=== PATIENT | male | born 1975 | race Caucasian/White ===

== ENCOUNTER 2021-06-16 18:22 | Inpatient (IN) | payer OTHER ==
[2021-06-16 21:15] VITALS: BMI 28.5
[2021-06-16] MEDS ORDERED: hydrOXYzine PAMOATE 25 MG CAPSULE (FP) PO PRN (21:35)
[2021-06-16] MEDS ORDERED: BISMUTH SUBSALICYLATE 524 MG/30 ML PO PRN (21:35)
[2021-06-16] MEDS ORDERED: MAGNESIUM HYDROX 2400MG/30ML ORAL SUSPENSION 30 ML CUP PO PRN (21:35)
[2021-06-16] MEDS ORDERED: LOPERAMIDE HCL 2 MG CAPSULE PO PRN (21:35)
[2021-06-16] MEDS ORDERED: ACETAMINOPHEN 325 MG TABLET (FP) PO PRN ×2 (21:35)
[2021-06-16] MEDS ORDERED: IBUPROFEN 400 MG TABLET (FP) PO PRN (21:35)
[2021-06-16] MEDS ORDERED: MELATONIN 5 MG TABLETS PO PRN (21:35)
[2021-06-16] MEDS ORDERED: MENTHOL/PHENOL 1 EACH UD MM PRN (21:35)
[2021-06-16] MEDS ORDERED: MAGNESIUM CITRATE 300 ML BOTTLE PO PRN (21:35)
[2021-06-16] MEDS ORDERED: METHOCARBAMOL 500 MG TABLET PO PRN (21:35)
[2021-06-16] MEDS ORDERED: MAG HYDROX/AL HYDROX/SIMETH 30 ML UNIT-DOSE CUP PO PRN (21:35)
[2021-06-16] MEDS ORDERED: ONDANSETRON *ODT* 4 MG TABLET SL PRN (21:35)
[2021-06-17] MEDS: THIAMINE HCL 100 MG TABLET (FP) PO SCH ×2 (02:10→22:18)
[2021-06-17] MEDS: PRENATAL VITAMINS W/ FOLIC ACID TABLET (FP) PO SCH (10:16)
[2021-06-17] MEDS: NICOTINE POLACRILEX 2 MG GUM BUC PRN ×2 (10:42→14:21)
[2021-06-17 10:54] LABS: HEMATOCRIT 37.2 % (35.4-49); HEMOGLOBIN 12.5 GM/dL (11.7-16.9); MCH 29.4 pg (25.7-33.7); MCHC 33.6 g/dl (32.0-35.9); MEAN CELL VOLUME 87.6 fl (80-96); MEAN PLT VOLUME 9.8 fl (7.5-11.1); PLATELET COUNT 155 10^3/uL (134-434); RBC 4.25 M/mm3 (4.00-5.60); RDW 12.5 % (11.9-15.9); WHITE BLOOD COUNT 3.1 K/mm3 (4.0-10.0)
[2021-06-17] MEDS ORDERED: methaDONE HCL 10 MG TABLET PO ONE (13:17)
[2021-06-17] MEDS ORDERED: methaDONE HCL 10 MG TABLET ONE (14:13)
[2021-06-17] MEDS ORDERED: methaDONE HCL 40 MG DISPERSABLE TABLET ONE (14:14)
[2021-06-17 14:29] LABS: ALBUMIN 3.4 g/dl (3.4-5.0); BILIRUBIN,TOTAL 0.3 mg/dL (0.2-1); BLOOD UREA NITROGEN 14.4 mg/dL (7-18); CALCIUM 8.9 mg/dL (8.5-10.1); TOT PROT 6.3 g/dl (6.4-8.2)
[2021-06-17] MEDS ORDERED: NICOTINE 10 MG CARTRIDGE (INHALER) IH PRN (14:53)
[2021-06-18] MEDS ORDERED: methaDONE HCL 10 MG TABLET ONE (04:05)
[2021-06-18] MEDS ORDERED: methaDONE HCL 40 MG DISPERSABLE TABLET ONE (04:05)
[2021-06-18] MEDS ORDERED: methaDONE HCL 10 MG TABLET PO SCH (06:00)
[2021-06-18] MEDS: NICOTINE POLACRILEX 2 MG GUM BUC PRN ×2 (06:32→10:12)
[2021-06-18 09:28] VITALS: BP 138/80; PULSE 76; TEMP 97.7
[2021-06-18] MEDS: PRENATAL VITAMINS W/ FOLIC ACID TABLET (FP) PO SCH (10:12)
== END 2021-06-18 15:06 | disposition other institution (70) | DRG 773 ==
LOC: YASAS 18:22 → Y6N 06-17 02:38 → UNDOADMIN 06-17 02:38
PROVIDERS: ADMIT Allergy & Immunology; ATTEND Allergy & Immunology
PROC: HZ2ZZZZ Detoxification Services for Substance Abuse Treatment (ICD-10-PCS; principal; 2021-06-17)
DX: F10.230 Alcohol dependence with withdrawal, uncomplicated (principal); F13.230 Sedative, hypnotic or anxiolytic dependence with withdrawal, uncomplicated; F11.20 Opioid dependence, uncomplicated; F14.20 Cocaine dependence, uncomplicated; F12.20 Cannabis dependence, uncomplicated; F17.210 Nicotine dependence, cigarettes, uncomplicated
CPT/HCPCS: 36415; 71046-TC-FY; 80053; 85027; 86780; C9803; U0003; U0005

== ENCOUNTER 2021-06-18 15:17 | Inpatient (IN) | payer OTHER ==
[~2021-06-18 15:17] MED LIST: LOPERAMIDE HCL 2 MG CAPSULE PO PRN; MAG HYDROX/AL HYDROX/SIMETH 30 ML UNIT-DOSE CUP PO PRN; MAGNESIUM CITRATE 300 ML BOTTLE PO PRN; P-EPHED 60MG/TRIPROLIDI 2.5MG TABLET PO PRN; guaiFENesin 200 MG/10 ML 10 ML UNIT-DOSE CUPS PO PRN
[2021-06-18] MEDS: THIAMINE HCL 100 MG TABLET (FP) PO SCH (21:05)
[2021-06-18] MEDS: MELATONIN 5 MG TABLETS PO SCH (21:05)
[2021-06-18] MEDS: NICOTINE 10 MG CARTRIDGE (INHALER) IH PRN (21:36)
[2021-06-19] MEDS ORDERED: methaDONE HCL 40 MG DISPERSABLE TABLET ONE (04:06)
[2021-06-19] MEDS ORDERED: methaDONE HCL 10 MG TABLET ONE (04:06)
[2021-06-19] MEDS ORDERED: methaDONE HCL 10 MG TABLET PO SCH (06:00)
[2021-06-19] MEDS: NICOTINE 10 MG CARTRIDGE (INHALER) IH PRN ×2 (06:26→21:04)
[2021-06-19] MEDS: PRENATAL VITAMINS W/ FOLIC ACID TABLET (FP) PO SCH (10:01)
[2021-06-19 10:31] LABS: BASO % 0.2 % (0-2.0); EOS % 3.7 % (0-4.5); HEMATOCRIT 37.7 % (35.4-49); HEMOGLOBIN 12.6 GM/dL (11.7-16.9); MCH 29.3 pg (25.7-33.7); MCHC 33.4 g/dl (32.0-35.9); MEAN CELL VOLUME 87.8 fl (80-96); MEAN PLT VOLUME 9.6 fl (7.5-11.1); MONO % 11.7 % (3.8-10.2); NEUT % 58.4 % (42.8-82.8); PLATELET COUNT 135 10^3/uL (134-434); RBC 4.29 M/mm3 (4.00-5.60); RDW 12.3 % (11.9-15.9)
[2021-06-19] MEDS: hydrOXYzine PAMOATE 25 MG CAPSULE (FP) PO PRN ×2 (11:46→21:04)
[2021-06-19] MEDS: MELATONIN 5 MG TABLETS PO SCH (21:03)
[2021-06-19] MEDS: THIAMINE HCL 100 MG TABLET (FP) PO SCH (21:04)
[2021-06-20] MEDS ORDERED: methaDONE HCL 40 MG DISPERSABLE TABLET ONE (04:16)
[2021-06-20] MEDS ORDERED: methaDONE HCL 10 MG TABLET ONE (04:16)
[2021-06-20] MEDS: PRENATAL VITAMINS W/ FOLIC ACID TABLET (FP) PO SCH (09:46)
[2021-06-20] MEDS: NICOTINE 10 MG CARTRIDGE (INHALER) IH PRN ×2 (09:46→21:42)
[2021-06-20] MEDS: hydrOXYzine PAMOATE 25 MG CAPSULE (FP) PO PRN ×3 (09:46→21:42)
[2021-06-20] MEDS: ACETAMINOPHEN 325 MG TABLET (FP) PO PRN (19:38)
[2021-06-20] MEDS: MELATONIN 5 MG TABLETS PO SCH (21:42)
[2021-06-20] MEDS: THIAMINE HCL 100 MG TABLET (FP) PO SCH (21:42)
[2021-06-21] MEDS ORDERED: methaDONE HCL 10 MG TABLET ONE (03:09)
[2021-06-21] MEDS ORDERED: methaDONE HCL 40 MG DISPERSABLE TABLET ONE (03:10)
[2021-06-21] MEDS: ACETAMINOPHEN 325 MG TABLET (FP) PO PRN (06:02)
[2021-06-21] MEDS: PRENATAL VITAMINS W/ FOLIC ACID TABLET (FP) PO SCH (09:45)
[2021-06-21] MEDS: NICOTINE 10 MG CARTRIDGE (INHALER) IH PRN ×2 (09:45→16:36)
[2021-06-21] MEDS: hydrOXYzine PAMOATE 25 MG CAPSULE (FP) PO PRN (09:46)
[2021-06-21] MEDS: THIAMINE HCL 100 MG TABLET (FP) PO SCH (21:46)
[2021-06-21] MEDS: MELATONIN 5 MG TABLETS PO SCH (21:46)
[2021-06-22] MEDS ORDERED: methaDONE HCL 40 MG DISPERSABLE TABLET ONE (03:07)
[2021-06-22] MEDS ORDERED: methaDONE HCL 10 MG TABLET ONE (03:07)
[2021-06-22] MEDS: NICOTINE 10 MG CARTRIDGE (INHALER) IH PRN ×2 (06:06→16:28)
[2021-06-22] MEDS: PRENATAL VITAMINS W/ FOLIC ACID TABLET (FP) PO SCH (10:35)
[2021-06-22] MEDS: hydrOXYzine PAMOATE 25 MG CAPSULE (FP) PO PRN ×2 (10:35→21:14)
[2021-06-22] MEDS: MELATONIN 5 MG TABLETS PO SCH (21:13)
[2021-06-22] MEDS: THIAMINE HCL 100 MG TABLET (FP) PO SCH (21:13)
[2021-06-22] MEDS: IBUPROFEN 400 MG TABLET (FP) PO PRN (21:13)
[2021-06-23] MEDS ORDERED: methaDONE HCL 40 MG DISPERSABLE TABLET ONE (03:18)
[2021-06-23] MEDS ORDERED: methaDONE HCL 10 MG TABLET ONE (03:18)
[2021-06-23] MEDS: PRENATAL VITAMINS W/ FOLIC ACID TABLET (FP) PO SCH (09:49)
[2021-06-23] MEDS: NICOTINE 10 MG CARTRIDGE (INHALER) IH PRN ×3 (09:50→21:21)
[2021-06-23] MEDS: IBUPROFEN 400 MG TABLET (FP) PO PRN ×2 (09:50→21:20)
[2021-06-23] MEDS: hydrOXYzine PAMOATE 25 MG CAPSULE (FP) PO PRN (09:50)
[2021-06-23] MEDS: THIAMINE HCL 100 MG TABLET (FP) PO SCH (21:20)
[2021-06-23] MEDS: MELATONIN 5 MG TABLETS PO SCH (21:20)
[2021-06-24] MEDS ORDERED: methaDONE HCL 40 MG DISPERSABLE TABLET ONE (03:25)
[2021-06-24] MEDS ORDERED: methaDONE HCL 10 MG TABLET ONE (03:25)
[2021-06-24] MEDS: NICOTINE 10 MG CARTRIDGE (INHALER) IH PRN (06:06)
[2021-06-24 08:10] LABS: SARS-CoV-2 NAA Not Detected (Not Detected)
[2021-06-24] MEDS: PRENATAL VITAMINS W/ FOLIC ACID TABLET (FP) PO SCH (09:43)
[2021-06-24] MEDS: hydrOXYzine PAMOATE 25 MG CAPSULE (FP) PO PRN (09:43)
[2021-06-24] MEDS: MAGNESIUM HYDROX 2400MG/30ML ORAL SUSPENSION 30 ML CUP PO PRN (09:44)
[2021-06-24] MEDS: THIAMINE HCL 100 MG TABLET (FP) PO SCH (21:01)
[2021-06-24] MEDS: MELATONIN 5 MG TABLETS PO SCH (21:01)
[2021-06-24] MEDS: IBUPROFEN 400 MG TABLET (FP) PO PRN (21:16)
[2021-06-25] MEDS ORDERED: methaDONE HCL 10 MG TABLET ONE (03:06)
[2021-06-25] MEDS ORDERED: methaDONE HCL 40 MG DISPERSABLE TABLET ONE (03:06)
[2021-06-25] MEDS: NICOTINE 10 MG CARTRIDGE (INHALER) IH PRN ×2 (05:50→09:52)
[2021-06-25] MEDS: PRENATAL VITAMINS W/ FOLIC ACID TABLET (FP) PO SCH (09:51)
[2021-06-25] MEDS: hydrOXYzine PAMOATE 25 MG CAPSULE (FP) PO PRN (09:51)
[2021-06-25] MEDS: MELATONIN 5 MG TABLETS PO SCH (21:16)
[2021-06-25] MEDS: THIAMINE HCL 100 MG TABLET (FP) PO SCH (21:16)
[2021-06-25] MEDS: IBUPROFEN 400 MG TABLET (FP) PO PRN (21:17)
[2021-06-26] MEDS ORDERED: methaDONE HCL 10 MG TABLET ONE (04:01)
[2021-06-26] MEDS ORDERED: methaDONE HCL 40 MG DISPERSABLE TABLET ONE (04:01)
[2021-06-26] MEDS: NICOTINE 10 MG CARTRIDGE (INHALER) IH PRN ×2 (05:51→21:03)
[2021-06-26] MEDS: PRENATAL VITAMINS W/ FOLIC ACID TABLET (FP) PO SCH (10:00)
[2021-06-26] MEDS: hydrOXYzine PAMOATE 25 MG CAPSULE (FP) PO PRN (10:30)
[2021-06-26] MEDS: THIAMINE HCL 100 MG TABLET (FP) PO SCH (21:03)
[2021-06-26] MEDS: MELATONIN 5 MG TABLETS PO SCH (21:03)
[2021-06-27] MEDS ORDERED: methaDONE HCL 40 MG DISPERSABLE TABLET ONE (04:47)
[2021-06-27] MEDS ORDERED: methaDONE HCL 10 MG TABLET ONE (04:47)
[2021-06-27] MEDS: NICOTINE 10 MG CARTRIDGE (INHALER) IH PRN ×2 (05:57→19:08)
[2021-06-27] MEDS: hydrOXYzine PAMOATE 25 MG CAPSULE (FP) PO PRN ×2 (09:33→21:08)
[2021-06-27] MEDS: PRENATAL VITAMINS W/ FOLIC ACID TABLET (FP) PO SCH (09:33)
[2021-06-27] MEDS: MELATONIN 5 MG TABLETS PO SCH (21:08)
[2021-06-27] MEDS: THIAMINE HCL 100 MG TABLET (FP) PO SCH (21:08)
[2021-06-28] MEDS ORDERED: methaDONE HCL 40 MG DISPERSABLE TABLET ONE (03:26)
[2021-06-28] MEDS ORDERED: methaDONE HCL 10 MG TABLET ONE (03:26)
[2021-06-28] MEDS: NICOTINE 10 MG CARTRIDGE (INHALER) IH PRN ×3 (06:00→17:42)
[2021-06-28] MEDS: PRENATAL VITAMINS W/ FOLIC ACID TABLET (FP) PO SCH (09:55)
[2021-06-28] MEDS: hydrOXYzine PAMOATE 25 MG CAPSULE (FP) PO PRN ×2 (09:56→21:03)
[2021-06-28] MEDS: THIAMINE HCL 100 MG TABLET (FP) PO SCH (21:03)
[2021-06-28] MEDS: MELATONIN 5 MG TABLETS PO SCH (21:03)
[2021-06-29] MEDS ORDERED: methaDONE HCL 10 MG TABLET ONE (03:31)
[2021-06-29] MEDS ORDERED: methaDONE HCL 40 MG DISPERSABLE TABLET ONE (03:31)
[2021-06-29] MEDS: PRENATAL VITAMINS W/ FOLIC ACID TABLET (FP) PO SCH (09:52)
[2021-06-29] MEDS: hydrOXYzine PAMOATE 25 MG CAPSULE (FP) PO PRN (09:52)
[2021-06-29] MEDS: THIAMINE HCL 100 MG TABLET (FP) PO SCH (21:10)
[2021-06-29] MEDS: MELATONIN 5 MG TABLETS PO SCH (21:10)
[2021-06-29] MEDS: IBUPROFEN 400 MG TABLET (FP) PO PRN (21:11)
[2021-06-30] MEDS ORDERED: methaDONE HCL 10 MG TABLET ONE (03:08)
[2021-06-30] MEDS ORDERED: methaDONE HCL 40 MG DISPERSABLE TABLET ONE (03:08)
[2021-06-30] MEDS: PRENATAL VITAMINS W/ FOLIC ACID TABLET (FP) PO SCH (10:04)
[2021-06-30] MEDS: NICOTINE 10 MG CARTRIDGE (INHALER) IH PRN ×2 (10:05→21:08)
[2021-06-30] MEDS: hydrOXYzine PAMOATE 25 MG CAPSULE (FP) PO PRN (10:05)
[2021-06-30 14:07] LABS: SARS-CoV-2 NAA Not Detected (Not Detected)
[2021-06-30] MEDS: MELATONIN 5 MG TABLETS PO SCH (21:08)
[2021-06-30] MEDS: THIAMINE HCL 100 MG TABLET (FP) PO SCH (21:08)
[2021-06-30] MEDS: IBUPROFEN 400 MG TABLET (FP) PO PRN (21:08)
[2021-07-01] MEDS ORDERED: methaDONE HCL 10 MG TABLET ONE (03:11)
[2021-07-01] MEDS ORDERED: methaDONE HCL 40 MG DISPERSABLE TABLET ONE (03:11)
[2021-07-01] MEDS: PRENATAL VITAMINS W/ FOLIC ACID TABLET (FP) PO SCH (11:39)
[2021-07-01] MEDS: NICOTINE 10 MG CARTRIDGE (INHALER) IH PRN ×2 (13:06→19:14)
[2021-07-01] MEDS: THIAMINE HCL 100 MG TABLET (FP) PO SCH (21:09)
[2021-07-01] MEDS: MELATONIN 5 MG TABLETS PO SCH (21:09)
[2021-07-02] MEDS ORDERED: methaDONE HCL 10 MG TABLET ONE (02:55)
[2021-07-02] MEDS ORDERED: methaDONE HCL 40 MG DISPERSABLE TABLET ONE (02:55)
[2021-07-02] MEDS: NICOTINE 10 MG CARTRIDGE (INHALER) IH PRN ×3 (06:13→19:13)
[2021-07-02] MEDS: PRENATAL VITAMINS W/ FOLIC ACID TABLET (FP) PO SCH (09:32)
[2021-07-02] MEDS: MAGNESIUM HYDROX 2400MG/30ML ORAL SUSPENSION 30 ML CUP PO PRN (09:33)
[2021-07-02] MEDS ORDERED: MAGNESIUM CITRATE 300 ML BOTTLE PO PRN (14:02)
[2021-07-02] MEDS: THIAMINE HCL 100 MG TABLET (FP) PO SCH (21:07)
[2021-07-02] MEDS: MELATONIN 5 MG TABLETS PO SCH (21:07)
[2021-07-03] MEDS ORDERED: methaDONE HCL 40 MG DISPERSABLE TABLET ONE (04:05)
[2021-07-03] MEDS ORDERED: methaDONE HCL 10 MG TABLET ONE (04:05)
[2021-07-03] MEDS: NICOTINE 10 MG CARTRIDGE (INHALER) IH PRN ×2 (05:47→17:25)
[2021-07-03] MEDS: PRENATAL VITAMINS W/ FOLIC ACID TABLET (FP) PO SCH (10:49)
[2021-07-03] MEDS: MELATONIN 5 MG TABLETS PO SCH (21:00)
[2021-07-03] MEDS: THIAMINE HCL 100 MG TABLET (FP) PO SCH (21:00)
[2021-07-04] MEDS ORDERED: methaDONE HCL 10 MG TABLET ONE (05:36)
[2021-07-04] MEDS ORDERED: methaDONE HCL 40 MG DISPERSABLE TABLET ONE (05:36)
[2021-07-04] MEDS: NICOTINE 10 MG CARTRIDGE (INHALER) IH PRN ×3 (05:46→21:05)
[2021-07-04] MEDS: PRENATAL VITAMINS W/ FOLIC ACID TABLET (FP) PO SCH (10:53)
[2021-07-04] MEDS: MELATONIN 5 MG TABLETS PO SCH (21:05)
[2021-07-04] MEDS: THIAMINE HCL 100 MG TABLET (FP) PO SCH (21:05)
[2021-07-05] MEDS ORDERED: methaDONE HCL 10 MG TABLET ONE (03:48)
[2021-07-05] MEDS ORDERED: methaDONE HCL 40 MG DISPERSABLE TABLET ONE (03:48)
[2021-07-05] MEDS: NICOTINE 10 MG CARTRIDGE (INHALER) IH PRN ×3 (06:09→21:12)
[2021-07-05] MEDS: PRENATAL VITAMINS W/ FOLIC ACID TABLET (FP) PO SCH (09:56)
[2021-07-05] MEDS: MELATONIN 5 MG TABLETS PO SCH (21:12)
[2021-07-05] MEDS: THIAMINE HCL 100 MG TABLET (FP) PO SCH (21:12)
[2021-07-06] MEDS ORDERED: methaDONE HCL 10 MG TABLET ONE (03:11)
[2021-07-06] MEDS ORDERED: methaDONE HCL 40 MG DISPERSABLE TABLET ONE (03:12)
[2021-07-06] MEDS: PRENATAL VITAMINS W/ FOLIC ACID TABLET (FP) PO SCH (10:11)
[2021-07-06] MEDS: NICOTINE 10 MG CARTRIDGE (INHALER) IH PRN ×2 (10:11→17:09)
[2021-07-06] MEDS: THIAMINE HCL 100 MG TABLET (FP) PO SCH (21:02)
[2021-07-06] MEDS: MELATONIN 5 MG TABLETS PO SCH (21:02)
[2021-07-06] MEDS: IBUPROFEN 400 MG TABLET (FP) PO PRN (21:03)
[2021-07-07] MEDS ORDERED: methaDONE HCL 10 MG TABLET ONE (03:09)
[2021-07-07] MEDS ORDERED: methaDONE HCL 40 MG DISPERSABLE TABLET ONE (03:09)
[2021-07-07] MEDS: NICOTINE 10 MG CARTRIDGE (INHALER) IH PRN ×3 (05:47→21:04)
[2021-07-07] MEDS: PRENATAL VITAMINS W/ FOLIC ACID TABLET (FP) PO SCH (10:28)
[2021-07-07] MEDS: MELATONIN 5 MG TABLETS PO SCH (21:03)
[2021-07-07] MEDS: IBUPROFEN 400 MG TABLET (FP) PO PRN (21:03)
[2021-07-07] MEDS: THIAMINE HCL 100 MG TABLET (FP) PO SCH (21:03)
[2021-07-08] MEDS ORDERED: methaDONE HCL 10 MG TABLET ONE (03:53)
[2021-07-08] MEDS ORDERED: methaDONE HCL 40 MG DISPERSABLE TABLET ONE (03:53)
[2021-07-08] MEDS: NICOTINE 10 MG CARTRIDGE (INHALER) IH PRN ×2 (09:51→19:35)
[2021-07-08] MEDS: PRENATAL VITAMINS W/ FOLIC ACID TABLET (FP) PO SCH (09:51)
[2021-07-08] MEDS: MELATONIN 5 MG TABLETS PO SCH (21:01)
[2021-07-08] MEDS: IBUPROFEN 400 MG TABLET (FP) PO PRN (21:02)
[2021-07-08] MEDS: THIAMINE HCL 100 MG TABLET (FP) PO SCH (21:03)
[2021-07-09] MEDS ORDERED: methaDONE HCL 40 MG DISPERSABLE TABLET ONE (04:00)
[2021-07-09] MEDS ORDERED: methaDONE HCL 10 MG TABLET ONE (04:00)
[2021-07-09] MEDS: NICOTINE 10 MG CARTRIDGE (INHALER) IH PRN ×2 (06:14→21:15)
[2021-07-09] MEDS: PRENATAL VITAMINS W/ FOLIC ACID TABLET (FP) PO SCH (11:02)
[2021-07-09] MEDS: THIAMINE HCL 100 MG TABLET (FP) PO SCH (21:15)
[2021-07-09] MEDS: MELATONIN 5 MG TABLETS PO SCH (21:15)
[2021-07-10] MEDS ORDERED: methaDONE HCL 10 MG TABLET ONE (06:06)
[2021-07-10] MEDS ORDERED: methaDONE HCL 40 MG DISPERSABLE TABLET ONE (06:06)
[2021-07-10] MEDS: NICOTINE 10 MG CARTRIDGE (INHALER) IH PRN ×3 (06:08→21:37)
[2021-07-10] MEDS: PRENATAL VITAMINS W/ FOLIC ACID TABLET (FP) PO SCH (10:23)
[2021-07-10] MEDS: MELATONIN 5 MG TABLETS PO SCH (21:37)
[2021-07-10] MEDS: THIAMINE HCL 100 MG TABLET (FP) PO SCH (21:37)
[2021-07-11] MEDS ORDERED: methaDONE HCL 10 MG TABLET ONE (04:04)
[2021-07-11] MEDS ORDERED: methaDONE HCL 40 MG DISPERSABLE TABLET ONE (04:04)
[2021-07-11] MEDS: NICOTINE 10 MG CARTRIDGE (INHALER) IH PRN ×3 (05:57→19:08)
[2021-07-11] MEDS: PRENATAL VITAMINS W/ FOLIC ACID TABLET (FP) PO SCH (10:26)
[2021-07-11] MEDS: MELATONIN 5 MG TABLETS PO SCH (21:01)
[2021-07-11] MEDS: IBUPROFEN 400 MG TABLET (FP) PO PRN (21:01)
[2021-07-11] MEDS: THIAMINE HCL 100 MG TABLET (FP) PO SCH (21:02)
[2021-07-12] MEDS ORDERED: methaDONE HCL 10 MG TABLET ONE (04:08)
[2021-07-12] MEDS ORDERED: methaDONE HCL 40 MG DISPERSABLE TABLET ONE (04:09)
[2021-07-12] MEDS: NICOTINE 10 MG CARTRIDGE (INHALER) IH PRN ×3 (06:00→21:16)
[2021-07-12] MEDS: PRENATAL VITAMINS W/ FOLIC ACID TABLET (FP) PO SCH (09:35)
[2021-07-12] MEDS: IBUPROFEN 400 MG TABLET (FP) PO PRN (21:15)
[2021-07-12] MEDS: MELATONIN 5 MG TABLETS PO SCH (21:16)
[2021-07-12] MEDS: THIAMINE HCL 100 MG TABLET (FP) PO SCH (21:16)
[2021-07-13] MEDS ORDERED: methaDONE HCL 10 MG TABLET ONE (03:15)
[2021-07-13] MEDS ORDERED: methaDONE HCL 40 MG DISPERSABLE TABLET ONE (03:15)
[2021-07-13] MEDS: NICOTINE 10 MG CARTRIDGE (INHALER) IH PRN ×2 (05:51→21:16)
[2021-07-13] MEDS: PRENATAL VITAMINS W/ FOLIC ACID TABLET (FP) PO SCH (10:12)
[2021-07-13] MEDS: MELATONIN 5 MG TABLETS PO SCH (21:16)
[2021-07-13] MEDS: IBUPROFEN 400 MG TABLET (FP) PO PRN (21:16)
[2021-07-13] MEDS: THIAMINE HCL 100 MG TABLET (FP) PO SCH (21:17)
[2021-07-14] MEDS ORDERED: methaDONE HCL 40 MG DISPERSABLE TABLET ONE (03:12)
[2021-07-14] MEDS ORDERED: methaDONE HCL 10 MG TABLET ONE (03:12)
[2021-07-14] MEDS: NICOTINE 10 MG CARTRIDGE (INHALER) IH PRN ×3 (06:09→19:06)
[2021-07-14] MEDS: PRENATAL VITAMINS W/ FOLIC ACID TABLET (FP) PO SCH (09:59)
[2021-07-14] MEDS: MELATONIN 5 MG TABLETS PO SCH (21:14)
[2021-07-14] MEDS: THIAMINE HCL 100 MG TABLET (FP) PO SCH (21:15)
[2021-07-15] MEDS ORDERED: methaDONE HCL 10 MG TABLET ONE (03:23)
[2021-07-15] MEDS ORDERED: methaDONE HCL 40 MG DISPERSABLE TABLET ONE (03:23)
[2021-07-15 07:07] VITALS: BP 143/98; PULSE 92; TEMP 97.9
[2021-07-15] MEDS: NICOTINE 10 MG CARTRIDGE (INHALER) IH PRN (07:18)
== END 2021-07-15 09:17 | disposition home or self-care (01) | DRG 772 ==
LOC: YASAS 15:17 → Y3W 15:19
PROVIDERS: ADMIT Allergy & Immunology; ATTEND Allergy & Immunology
PROC: HZ42ZZZ Group Counseling for Substance Abuse Treatment, Cognitive-Behavioral (ICD-10-PCS; principal; 2021-06-18)
DX: F10.20 Alcohol dependence, uncomplicated (principal); F11.20 Opioid dependence, uncomplicated; F13.20 Sedative, hypnotic or anxiolytic dependence, uncomplicated; F14.20 Cocaine dependence, uncomplicated; F12.20 Cannabis dependence, uncomplicated; F17.210 Nicotine dependence, cigarettes, uncomplicated
CPT/HCPCS: 36415; 85025; C9803; U0003; U0005

== ENCOUNTER 2022-10-21 16:05 | Inpatient (IN) | payer OTHER ==
[2022-10-21 18:23] VITALS: BMI 25.0
[2022-10-22] MEDS ORDERED: guaiFENesin 600 MG TABLET.ER (FP) PO PRN (00:13)
[2022-10-22] MEDS ORDERED: MAG HYDROX/AL HYDROX/SIMETH 30 ML UNIT-DOSE CUP PO PRN (00:13)
[2022-10-22] MEDS ORDERED: BENZOCAINE/MENTHOL (CHLORASEPTIC ) LOZENGE MM PRN (00:13)
[2022-10-22] MEDS ORDERED: POLYETHYLENE GLYCOL (HEALTHYLAX) 3350 17 GM PACKET PO PRN (00:13)
[2022-10-22] MEDS ORDERED: NALOXONE HCL (KLOXXADO) 8 MG SPRAY NS PRN (00:13)
[2022-10-22] MEDS ORDERED: AMMONIUM LACTATE 12% LOTION 225 GM BOTTLE TP PRN (00:13)
[2022-10-22] MEDS ORDERED: ACETAMINOPHEN 325 MG TABLET (FP) PO PRN (00:13)
[2022-10-22] MEDS ORDERED: COLLOIDAL OATMEAL 1 BAR EACH TP PRN (00:13)
[2022-10-22] MEDS ORDERED: BENZONATATE 200 MG CAPSULE PO PRN (00:13)
[2022-10-22] MEDS ORDERED: MAGNESIUM HYDROX 2400MG/30ML ORAL SUSPENSION 30 ML CUP PO PRN (00:13)
[2022-10-22] MEDS ORDERED: LOPERAMIDE HCL 2 MG CAPSULE PO PRN (00:13)
[2022-10-22] MEDS ORDERED: NALOXONE HCL 0.4 MG/ML VIAL IM PRN (00:13)
[2022-10-22 01:17] VITALS: RESP 18
[2022-10-22] MEDS: IBUPROFEN 400 MG TABLET (FP) PO PRN (01:20)
[2022-10-22] MEDS ORDERED: methaDONE HCL 10 MG TABLET PO SCH (09:00)
[2022-10-22] MEDS: PRENATAL VITAMINS W/ FOLIC ACID TABLET (FP) PO SCH (09:23)
[2022-10-22] MEDS: NICOTINE 21 MG/24 HOURS TOPICAL PATCH TD SCH (09:23)
[2022-10-22] MEDS ORDERED: methaDONE 40 MG, methaDONE 30 MG PO ONE (09:30)
[2022-10-22] MEDS: NICOTINE 10 MG CARTRIDGE (INHALER) IH PRN (12:24)
[2022-10-22 14:32] LABS: HEMATOCRIT 43.3 % (35.4-49); HEMOGLOBIN 14.2 GM/dL (11.7-16.9); MCH 28.6 pg (25.7-33.7); MCHC 32.7 g/dl (32.0-35.9); MEAN CELL VOLUME 87.4 fl (80-96); MEAN PLT VOLUME 8.8 fl (7.5-11.1); PLATELET COUNT 239 10^3/uL (134-434); RBC 4.95 M/mm3 (4.00-5.60); RDW 13.4 % (11.9-15.9); WHITE BLOOD COUNT 3.6 K/mm3 (4.0-10.0)
[2022-10-22 14:44] LABS: POTASSIUM 4.6 mmol/L (3.5-5.1)
[2022-10-22 14:50] LABS: ALBUMIN 3.7 g/dl (3.4-5.0); BLOOD UREA NITROGEN 13.9 mg/dL (7-18); CALCIUM 9.6 mg/dL (8.5-10.1)
[2022-10-22 14:53] LABS: BILIRUBIN,TOTAL 0.7 mg/dL (0.2-1); TOT PROT 7.9 g/dl (6.4-8.2)
[2022-10-22 14:58] LABS: CREATININE 0.9 mg/dL (0.55-1.3)
[2022-10-22] MEDS: MELATONIN 5 MG TABLETS PO SCH (21:09)
[2022-10-22] MEDS: THIAMINE HCL 100 MG TABLET (FP) PO SCH (21:09)
[2022-10-23] MEDS: methaDONE 40 MG, methaDONE 30 MG PO SCH (06:03)
[2022-10-23] MEDS: PRENATAL VITAMINS W/ FOLIC ACID TABLET (FP) PO SCH (09:58)
[2022-10-23] MEDS: NICOTINE 21 MG/24 HOURS TOPICAL PATCH TD SCH (09:59)
[2022-10-23] MEDS: NICOTINE 10 MG CARTRIDGE (INHALER) IH PRN ×2 (09:59→20:43)
[2022-10-23 11:05] LABS: PH,URINE 6.5 (5.0-8.0); URINE APPEARANCE CLEAR; URINE BILIRUBIN NEGATIVE (NEGATIVE); URINE COLOR YELLOW; URINE GLUCOSE (UA) NEGATIVE (NEGATIVE); URINE KETONE NEGATIVE (NEGATIVE); URINE LEUK ESTERASE NEGATIVE (NEGATIVE); URINE NITRITE NEGATIVE (NEGATIVE); URINE PROTEIN NEGATIVE (NEGATIVE); URINE UROBILINOGEN 0.2 mg/dL (0.2-1.0)
[2022-10-23] MEDS: hydrOXYzine PAMOATE 25 MG CAPSULE (FP) PO PRN ×2 (14:13→21:34)
[2022-10-23] MEDS: THIAMINE HCL 100 MG TABLET (FP) PO SCH (21:33)
[2022-10-23] MEDS: MELATONIN 5 MG TABLETS PO SCH (21:33)
[2022-10-23] MEDS: IBUPROFEN 600 MG TABLET (FP) PO PRN (21:34)
[2022-10-24] MEDS: methaDONE 40 MG, methaDONE 30 MG PO SCH (06:06)
[2022-10-24] MEDS: NICOTINE 10 MG CARTRIDGE (INHALER) IH PRN ×2 (09:58→16:42)
[2022-10-24] MEDS: NICOTINE 21 MG/24 HOURS TOPICAL PATCH TD SCH (09:58)
[2022-10-24] MEDS: PRENATAL VITAMINS W/ FOLIC ACID TABLET (FP) PO SCH (09:58)
[2022-10-24] MEDS: hydrOXYzine PAMOATE 25 MG CAPSULE (FP) PO PRN (09:59)
[2022-10-24] MEDS: hydrOXYzine PAMOATE 50 MG CAPSULE (FP) PO PRN (16:42)
[2022-10-24] MEDS: THIAMINE HCL 100 MG TABLET (FP) PO SCH (21:20)
[2022-10-24] MEDS: SUVOREXANT 10 MG TABLET PO PRN (21:21)
[2022-10-25] MEDS: methaDONE 40 MG, methaDONE 30 MG PO SCH (06:00)
[2022-10-25] MEDS: IBUPROFEN 400 MG TABLET (FP) PO PRN (10:22)
[2022-10-25] MEDS: PRENATAL VITAMINS W/ FOLIC ACID TABLET (FP) PO SCH (10:22)
[2022-10-25] MEDS: hydrOXYzine PAMOATE 50 MG CAPSULE (FP) PO PRN ×2 (10:24→21:56)
[2022-10-25] MEDS: NICOTINE 10 MG CARTRIDGE (INHALER) IH PRN ×2 (10:25→21:52)
[2022-10-25] MEDS: NICOTINE POLACRILEX 2 MG GUM BUC PRN (10:25)
[2022-10-25] MEDS: SUVOREXANT 10 MG TABLET PO PRN (21:54)
[2022-10-25] MEDS: THIAMINE HCL 100 MG TABLET (FP) PO SCH (21:57)
[2022-10-26] MEDS: methaDONE 40 MG, methaDONE 30 MG PO SCH (06:05)
[2022-10-26] MEDS: PRENATAL VITAMINS W/ FOLIC ACID TABLET (FP) PO SCH (09:34)
[2022-10-26] MEDS: hydrOXYzine PAMOATE 50 MG CAPSULE (FP) PO PRN ×2 (09:36→21:16)
[2022-10-26] MEDS: IBUPROFEN 600 MG TABLET (FP) PO PRN (21:16)
[2022-10-26] MEDS: SUVOREXANT 10 MG TABLET PO PRN (21:16)
[2022-10-26] MEDS: THIAMINE HCL 100 MG TABLET (FP) PO SCH (21:18)
[2022-10-27] MEDS: methaDONE 40 MG, methaDONE 30 MG PO SCH (06:02)
[2022-10-27] MEDS: NICOTINE 10 MG CARTRIDGE (INHALER) IH PRN (06:03)
[2022-10-27] MEDS: hydrOXYzine PAMOATE 50 MG CAPSULE (FP) PO PRN ×2 (09:55→21:23)
[2022-10-27] MEDS: PRENATAL VITAMINS W/ FOLIC ACID TABLET (FP) PO SCH (09:55)
[2022-10-27] MEDS: NICOTINE POLACRILEX 2 MG GUM BUC PRN (09:56)
[2022-10-27] MEDS: THIAMINE HCL 100 MG TABLET (FP) PO SCH (21:01)
[2022-10-27] MEDS: SUVOREXANT 10 MG TABLET PO PRN ×2 (21:02→21:23)
[2022-10-27] MEDS: IBUPROFEN 400 MG TABLET (FP) PO PRN (21:22)
[2022-10-28] MEDS: NICOTINE 10 MG CARTRIDGE (INHALER) IH PRN ×3 (05:57→21:28)
[2022-10-28] MEDS: methaDONE 40 MG, methaDONE 30 MG PO SCH (05:58)
[2022-10-28] MEDS: PRENATAL VITAMINS W/ FOLIC ACID TABLET (FP) PO SCH (10:12)
[2022-10-28] MEDS: hydrOXYzine PAMOATE 50 MG CAPSULE (FP) PO PRN ×2 (10:13→21:27)
[2022-10-28] MEDS: IBUPROFEN 600 MG TABLET (FP) PO PRN (21:25)
[2022-10-28] MEDS: SUVOREXANT 10 MG TABLET PO PRN (21:27)
[2022-10-28] MEDS: THIAMINE HCL 100 MG TABLET (FP) PO SCH (21:51)
[2022-10-29] MEDS: methaDONE 40 MG, methaDONE 30 MG PO SCH (06:05)
[2022-10-29] MEDS: NICOTINE 10 MG CARTRIDGE (INHALER) IH PRN ×2 (06:06→10:05)
[2022-10-29] MEDS: hydrOXYzine PAMOATE 50 MG CAPSULE (FP) PO PRN ×2 (10:04→21:32)
[2022-10-29] MEDS: PRENATAL VITAMINS W/ FOLIC ACID TABLET (FP) PO SCH (10:04)
[2022-10-29] MEDS: SUVOREXANT 10 MG TABLET PO PRN (21:32)
[2022-10-29] MEDS: IBUPROFEN 400 MG TABLET (FP) PO PRN (21:32)
[2022-10-29] MEDS: THIAMINE HCL 100 MG TABLET (FP) PO SCH (21:42)
[2022-10-30] MEDS: methaDONE 40 MG, methaDONE 30 MG PO SCH (06:04)
[2022-10-30] MEDS: NICOTINE 10 MG CARTRIDGE (INHALER) IH PRN ×3 (06:06→21:21)
[2022-10-30] MEDS: PRENATAL VITAMINS W/ FOLIC ACID TABLET (FP) PO SCH (09:38)
[2022-10-30] MEDS: hydrOXYzine PAMOATE 50 MG CAPSULE (FP) PO PRN ×2 (09:40→21:21)
[2022-10-30] MEDS: IBUPROFEN 600 MG TABLET (FP) PO PRN (21:19)
[2022-10-30] MEDS: SUVOREXANT 10 MG TABLET PO PRN (21:19)
[2022-10-30] MEDS: THIAMINE HCL 100 MG TABLET (FP) PO SCH (21:30)
[2022-10-31] MEDS: methaDONE 40 MG, methaDONE 30 MG PO SCH (06:03)
[2022-10-31] MEDS: PRENATAL VITAMINS W/ FOLIC ACID TABLET (FP) PO SCH (09:51)
[2022-10-31] MEDS: NICOTINE 10 MG CARTRIDGE (INHALER) IH PRN ×2 (09:51→21:02)
[2022-10-31] MEDS: hydrOXYzine PAMOATE 50 MG CAPSULE (FP) PO PRN ×2 (09:51→21:02)
[2022-10-31] MEDS: IBUPROFEN 600 MG TABLET (FP) PO PRN (21:01)
[2022-10-31] MEDS: SUVOREXANT 10 MG TABLET PO PRN (21:03)
[2022-10-31] MEDS: THIAMINE HCL 100 MG TABLET (FP) PO SCH (21:03)
[2022-11-01] MEDS: NICOTINE 10 MG CARTRIDGE (INHALER) IH PRN ×3 (05:59→21:12)
[2022-11-01] MEDS: methaDONE 40 MG, methaDONE 30 MG PO SCH (06:00)
[2022-11-01] MEDS: PRENATAL VITAMINS W/ FOLIC ACID TABLET (FP) PO SCH (09:58)
[2022-11-01] MEDS: hydrOXYzine PAMOATE 50 MG CAPSULE (FP) PO PRN ×2 (09:59→21:12)
[2022-11-01] MEDS: THIAMINE HCL 100 MG TABLET (FP) PO SCH (21:11)
[2022-11-01] MEDS: IBUPROFEN 600 MG TABLET (FP) PO PRN (21:12)
[2022-11-01] MEDS: SUVOREXANT 10 MG TABLET PO PRN (21:15)
[2022-11-02] MEDS: methaDONE 40 MG, methaDONE 30 MG PO SCH (06:05)
[2022-11-02] MEDS: NICOTINE 10 MG CARTRIDGE (INHALER) IH PRN ×3 (06:06→21:04)
[2022-11-02] MEDS: PRENATAL VITAMINS W/ FOLIC ACID TABLET (FP) PO SCH (10:02)
[2022-11-02] MEDS: hydrOXYzine PAMOATE 50 MG CAPSULE (FP) PO PRN ×2 (10:02→21:03)
[2022-11-02] MEDS: SUVOREXANT 10 MG TABLET PO PRN (21:03)
[2022-11-02] MEDS: IBUPROFEN 400 MG TABLET (FP) PO PRN (21:03)
[2022-11-02] MEDS: THIAMINE HCL 100 MG TABLET (FP) PO SCH (21:04)
[2022-11-03] MEDS: methaDONE 40 MG, methaDONE 30 MG PO SCH (05:59)
[2022-11-03] MEDS: NICOTINE 10 MG CARTRIDGE (INHALER) IH PRN ×3 (06:01→21:35)
[2022-11-03] MEDS: PRENATAL VITAMINS W/ FOLIC ACID TABLET (FP) PO SCH (10:03)
[2022-11-03] MEDS: hydrOXYzine PAMOATE 50 MG CAPSULE (FP) PO PRN ×2 (10:03→21:36)
[2022-11-03] MEDS: THIAMINE HCL 100 MG TABLET (FP) PO SCH (21:36)
[2022-11-03] MEDS: SUVOREXANT 10 MG TABLET PO PRN (21:36)
[2022-11-03] MEDS: IBUPROFEN 600 MG TABLET (FP) PO PRN (21:37)
[2022-11-04] MEDS: NICOTINE 10 MG CARTRIDGE (INHALER) IH PRN (05:58)
[2022-11-04] MEDS: methaDONE 40 MG, methaDONE 30 MG PO SCH (05:59)
[2022-11-04] MEDS: PRENATAL VITAMINS W/ FOLIC ACID TABLET (FP) PO SCH (10:12)
[2022-11-04] MEDS: hydrOXYzine PAMOATE 50 MG CAPSULE (FP) PO PRN ×2 (10:12→21:22)
[2022-11-04] MEDS: IBUPROFEN 600 MG TABLET (FP) PO PRN (21:21)
[2022-11-04] MEDS: SUVOREXANT 10 MG TABLET PO PRN (21:21)
[2022-11-04] MEDS: THIAMINE HCL 100 MG TABLET (FP) PO SCH (21:22)
[2022-11-05] MEDS: methaDONE 40 MG, methaDONE 30 MG PO SCH (06:11)
[2022-11-05] MEDS: NICOTINE 10 MG CARTRIDGE (INHALER) IH PRN ×3 (06:11→22:13)
[2022-11-05] MEDS: PRENATAL VITAMINS W/ FOLIC ACID TABLET (FP) PO SCH (10:02)
[2022-11-05] MEDS: hydrOXYzine PAMOATE 50 MG CAPSULE (FP) PO PRN ×2 (10:03→21:05)
[2022-11-05] MEDS: IBUPROFEN 600 MG TABLET (FP) PO PRN (21:05)
[2022-11-05] MEDS: THIAMINE HCL 100 MG TABLET (FP) PO SCH (21:06)
[2022-11-05] MEDS ORDERED: SUVOREXANT 10 MG TABLET PO ONE (22:00)
[2022-11-06] MEDS: NICOTINE 10 MG CARTRIDGE (INHALER) IH PRN ×3 (06:04→21:40)
[2022-11-06] MEDS: methaDONE 40 MG, methaDONE 30 MG PO SCH (06:04)
[2022-11-06] MEDS: PRENATAL VITAMINS W/ FOLIC ACID TABLET (FP) PO SCH (10:13)
[2022-11-06] MEDS: hydrOXYzine PAMOATE 50 MG CAPSULE (FP) PO PRN ×2 (10:14→21:39)
[2022-11-06] MEDS: SUVOREXANT 10 MG TABLET PO PRN (21:38)
[2022-11-06] MEDS: IBUPROFEN 600 MG TABLET (FP) PO PRN (21:39)
[2022-11-06] MEDS: THIAMINE HCL 100 MG TABLET (FP) PO SCH (21:40)
[2022-11-07] MEDS: NICOTINE 10 MG CARTRIDGE (INHALER) IH PRN ×3 (05:57→21:28)
[2022-11-07] MEDS: methaDONE 40 MG, methaDONE 30 MG PO SCH (05:57)
[2022-11-07] MEDS: PRENATAL VITAMINS W/ FOLIC ACID TABLET (FP) PO SCH (09:51)
[2022-11-07] MEDS: hydrOXYzine PAMOATE 50 MG CAPSULE (FP) PO PRN ×2 (09:51→21:27)
[2022-11-07] MEDS: SUVOREXANT 10 MG TABLET PO PRN (21:27)
[2022-11-07] MEDS: IBUPROFEN 600 MG TABLET (FP) PO PRN (21:27)
[2022-11-07] MEDS: THIAMINE HCL 100 MG TABLET (FP) PO SCH (21:47)
[2022-11-08] MEDS: methaDONE 40 MG, methaDONE 30 MG PO SCH (05:58)
[2022-11-08] MEDS: NICOTINE 10 MG CARTRIDGE (INHALER) IH PRN (05:59)
[2022-11-08 07:10] VITALS: BP 137/86; PULSE 79; TEMP 97.3
[2022-11-08] MEDS: PRENATAL VITAMINS W/ FOLIC ACID TABLET (FP) PO SCH (09:12)
== END 2022-11-08 09:22 | disposition home or self-care (01) | DRG 772 ==
LOC: YASAS 16:05 → Y5N 10-22 00:57
PROVIDERS: ADMIT Allergy & Immunology; ATTEND Psychiatry & Neurology Pain Medicine
PROC: HZ42ZZZ Group Counseling for Substance Abuse Treatment, Cognitive-Behavioral (ICD-10-PCS; principal; 2022-10-22)
DX: F14.20 Cocaine dependence, uncomplicated (principal); F11.20 Opioid dependence, uncomplicated; F10.20 Alcohol dependence, uncomplicated; F13.20 Sedative, hypnotic or anxiolytic dependence, uncomplicated; F12.20 Cannabis dependence, uncomplicated; F19.280 Other psychoactive substance dependence with psychoactive substance-induced anxiety disorder; F19.282 Other psychoactive substance dependence with psychoactive substance-induced sleep disorder; F19.24 Other psychoactive substance dependence with psychoactive substance-induced mood disorder; F41.9 Anxiety disorder, unspecified; R76.11 Nonspecific reaction to tuberculin skin test without active tuberculosis
CPT/HCPCS: 36415; 71046-TC-FY; 80053; 81003; 85027; 86780; 87635